=== PATIENT | female | born 1955 | race Caucasian/White ===

== ENCOUNTER 2017-07-01 08:23 | Emergency (ER) | payer MEDICARE ==
[2017-07-01 08:36] VITALS: BP 186/79; PULSE 60; RESP 18; TEMP 98.2
--- NOTE | 2017-07-01 09:04 | ED ---
ENT HPI - General Chief complaint: Dental/Oral Stated complaint: dental pain Time Seen by Provider: 07/01/17 08:40 Source: patient, RN notes reviewed, old records reviewed Mode of arrival: ambulatory Limitations: no limitations - History of Present Illness Initial comments: 61-year-old female presents emergency Department chief complaint of dental pain. She reports that she had x-rays completed and shows that she has infections over tooth #13 and 11. Patient states that she cannot get into the dentist until she has an appointment to have the tooth pulled. Patient relates that she noticed some swelling over her gums and feels like her face is swelling. Patient states she's had no fever or chills. Patient denies any chest pain shortness of breath, nausea vomiting, headaches, vision changes. - Related Data Home Medications Medication Instructions Recorded Confirmed Atorvastatin [Lipitor] 40 mg PO HS 02/01/16 02/01/16 B C Arthritis Rx With Aspirin & 1,000 mg PO DIRECTED PRN 02/01/16 Caffeine Dicyclomine [Bentyl] 10 mg PO BID 02/01/16 02/01/16 Ergocalciferol [Vitamin D2] 50,000 unit PO Q7D 02/01/16 02/01/16 Ferrous Gluconate 325 mg PO DAILY 02/01/16 02/01/16 Garcinia Weight Loss Rx 1 dose PO DAILY 02/01/16 Glimepiride [Amaryl] 4 mg PO BID 02/01/16 02/01/16 HYDROcodone/APAP 7.5-325MG [Hammond 1 tab PO DIRECTED PRN 02/01/16 02/01/16 7.5-325] Ibuprofen [Motrin] 800 mg PO DIRECTED PRN 02/01/16 02/01/16 LORazepam [Ativan] 1 mg PO BID 02/01/16 02/01/16 Levothyroxine Sodium [Synthroid] 50 mcg PO DAILY 02/01/16 02/05/16 Melatonin 5 mg PO HS PRN 02/01/16 02/05/16 Metoprolol Tartrate [Lopressor] 25 mg PO HS 02/01/16 02/01/16 Omeprazole [PriLOSEC] 20 mg PO BID 02/01/16 02/01/16 Oxybutynin Chloride [Ditropan] 5 mg PO DAILY 02/01/16 02/01/16 Ramipril [Altace] 5 mg PO HS 02/01/16 02/01/16 Sertraline [Zoloft] 100 mg PO BID 02/01/16 02/01/16 Ubidecarenone [Co Q-10] 200 mg PO DAILY 02/01/16 02/01/16 metFORMIN HCL 1,000 mg PO BID 02/01/16 02/01/16 Previous Rx's Medication Instructions Recorded Clindamycin [Cleocin] 450 mg PO TID 7 Days capsule 07/01/17 HYDROcodone/APAP 5-325MG [Hammond 1 tab PO Q6HR PRN #10 tab 07/01/17 5-325] Allergies Allergy/AdvReac Type Severity Reaction Status Date / Time Penicillins Allergy Severe Rash/Hives, Verified 07/01/17 08:36 Swelling, Itching Sulfa (Sulfonamide Allergy Swelling Verified 07/01/17 08:36 Antibiotics) codeine AdvReac Severe MIGRAINE Verified 07/01/17 08:36 peanut AdvReac Severe Migraine Verified 07/01/17 08:36 Metal Allergy Unknown Rash/Hives Uncoded 07/01/17 08:36 Review of Systems ROS Statement: Those systems with pertinent positive or pertinent negative responses have been documented in the HPI. ROS Other: All systems not noted in ROS Statement are negative. Past Medical History Past Medical History: Cancer, Diabetes Mellitus, GERD/Reflux, Hyperlipidemia, Hypertension, Myocardial Infarction ([place]), Thyroid Disorder Additional Past Medical History / Comment(s): MIGAINES, SLEEP APNEA (HAD SURG), STATES SPASTIC COLON, SKIN CANCER, STATES FERNY SHOULDER PAIN AND LEFT HEEL PAIN. , PT STATES SHE HAS A SORE THROAT AND SWELLING BY LEFT EAR-TO NOTIFY DR ALDRIDGE. Last Myocardial Infarction Date:: 2005 History of Any Multi-Drug Resistant Organisms: None Reported Past Surgical History: Adenoidectomy, Bladder Surgery, Heart Catheterization With Stent, Orthopedic Surgery, Tonsillectomy Additional Past Surgical History / Comment(s): RIGHT SHOULDER ROTATOR CUFF, LEFT HEEL SURGERY ("CAME OUT OF THE SOCKET"), SLEEP APNEA SURGERY INCLUDING SEPTAL SURGERY . Past Anesthesia/Blood Transfusion Reactions: No Reported Reaction, Motion Sickness Date of Last Stent Placement:: 2005 Past Psychological History: Anxiety, Depression, Panic Disorder Smoking Status: Former smoker Past Alcohol Use History: Rare Past Drug Use History: None Reported - Past Family History Mother Family Medical History: Cancer Additional Family Medical History / Comment(s): BREAST CANCER Father Family Medical History: Cancer Additional Family Medical History / Comment(s): SKIN CANCER Brother(s) Family Medical History: Cancer Additional Family Medical History / Comment(s): LUNG CANCER Sister(s) Family Medical History: Cancer Additional Family Medical History / Comment(s): BRAIN MASS, MELANOMA General Exam - General Exam Comments Initial Comments: This is a 61-year-old female. Alert and oriented. No distress. Limitations: no limitations General appearance: alert, in no apparent distress Head exam: Present: atraumatic, normocephalic, normal inspection Eye exam: Present: normal appearance, PERRL, EOMI. Absent: scleral icterus, conjunctival injection, periorbital swelling ENT exam: Present: normal exam, mucous membranes moist. Absent: normal oropharynx (Patient has evidence of poor dentition. She has fractured tooth # 13. Multiple dental caries.) Neck exam: Present: normal inspection. Absent: tenderness, meningismus, lymphadenopathy Respiratory exam: Present: normal lung sounds bilaterally. Absent: respiratory distress, wheezes, rales, rhonchi, stridor Cardiovascular Exam: Present: regular rate, normal rhythm, normal heart sounds. Absent: systolic murmur, diastolic murmur, rubs, gallop, clicks Course Vital Signs 07/01/17 08:33 Temperature 98.2 F Pulse Rate 60 Respiratory 18 Rate Blood Pressure 186/79 O2 Sat by Pulse 97 Oximetry Medical Decision Making - Medical Decision Making 61-year-old female presents with dental pain and swelling of her gums. She has fractured tooth #13 where the majority of the swelling is. I will start the patient on antibiotics. She is ALLERGIC to the son, we'll start the patient on clindamycin for dental infection. Thus following up with dental clinic. All questions answered return parameters were discussed. Disposition Clinical Impression: Pain, dental Disposition: HOME SELF-CARE Condition: Good Instructions: Dental Abscess (ED), Toothache (ED) Additional Instructions: Patient advised to follow-up with primary care provider and dental clinic. Take the medication as prescribed. Return to the emergency department if any alarming signs or symptoms occur. Prescriptions: Clindamycin [Cleocin] 450 mg PO TID 7 Days capsule HYDROcodone/APAP 5-325MG [Hammond 5-325] 1 tab PO Q6HR PRN #10 tab PRN Reason: Pain Referrals: Cate Peguero DO [Primary Care Provider] - 1-2 days Time of Disposition: 09:02
== END 2017-07-01 09:12 | disposition home or self-care (01) ==
LOC: EC 08:23
DX: K08.89 Other specified disorders of teeth and supporting structures (principal); K06.8 Other specified disorders of gingiva and edentulous alveolar ridge; E11.9 Type 2 diabetes mellitus without complications; K21.9 Gastro-esophageal reflux disease without esophagitis; E78.5 Hyperlipidemia, unspecified; I10 Essential (primary) hypertension; I25.2 Old myocardial infarction; E07.9 Disorder of thyroid, unspecified; G47.30 Sleep apnea, unspecified; F41.9 Anxiety disorder, unspecified; F32.9 Major depressive disorder, single episode, unspecified; Z85.828 Personal history of other malignant neoplasm of skin; Z95.5 Presence of coronary angioplasty implant and graft; Z87.891 Personal history of nicotine dependence; Z79.84 Long term (current) use of oral hypoglycemic drugs; Z79.899 Other long term (current) drug therapy; Z88.0 Allergy status to penicillin; Z88.2 Allergy status to sulfonamides; Z88.5 Allergy status to narcotic agent; Z91.010 Allergy to peanuts; Z91.048 Other nonmedicinal substance allergy status
CPT/HCPCS: 99283

== ENCOUNTER → 2018-05-05 | Outpatient (CLI) | payer MEDICARE ==
[2018-05-05 08:22] LABS: Blood Urea Nitrogen 20 mg/dL (7-17)
--- NOTE | 2018-05-05 10:03 | CT ---
EXAMINATION TYPE: CT angio neck DATE OF EXAM: 05/05/2018 COMPARISON: None HISTORY: 62-year-old female with neck vessels which enlarge periodically TECHNIQUE: Contiguous axial scanning of the neck performed with IV Contrast, patient injected with 65 mL of Isovue 370. Coronal/sagittal MIP reconstructions performed. 3-D reconstructions generated on a dedicated independent workstation. CT DLP: 338 mGycm Automated exposure control for dose reduction was used. FINDINGS: Minimal centrilobular emphysema in the visualized upper lungs. Mild atherosclerotic arch calcifications. Mild circumferential atherosclerotic plaque in the proximal brachiocephalic artery. Variant direct takeoff of the left vertebral artery directly from the aortic arch. The right vertebral artery origin is not well seen but appears grossly patent. Both vessels opacify b ut appear somewhat diminutive. The V4 segment of the right vertebral artery becomes hypoplastic after the PICA takeoff. Persistent origins of the bilateral substation operator transforming. The right common carotid artery is patent. Mild atherosclerotic calcifications in the right carotid bulb without significant stenosis of the rig ht ICA. Moderate irregular atherosclerotic plaque at the left bifurcation with moderate, just over 50% narrow ing of the proximal left carotid bulb. The remainder of the left ICA is patent. Left angle mandible is located 1.6 cm above the bifurcation. Some incidental intraluminal air within the left brachiocephalic artery likely from IV placement. IMPRESSION: 1. MODERATE ATHEROSCLEROTIC CHANGE AT THE LEFT BIFURCATION WITH MODERATE, JUST OVER 50% ATHEROSCLEROT IC NARROWING IN THE PROXIMAL LEFT CAROTID BULB. 2. VARIANT DIRECT TAKEOFF OF THE LEFT VERTEBRAL ARTERY DIRECTLY FROM THE AORTIC ARCH. BOTH VERTEBRAL ARTERIES ARE SOMEWHAT DIMINUTIVE AND THERE IS PERSISTENT ORIGIN OF THE BILATERAL AMMUNITION STOREKEEPER's. ALSO, T HE V4 SEGMENT OF THE RIGHT VERTEBRAL ARTERY BECOMES HYPOPLASTIC AFTER THE PICA TAKEOFF. FINDINGS ARE OF QUESTIONABLE CLINICAL SIGNIFICANCE BUT MAY BE SEEN IN THE SETTING OF VERTEBROBASILAR INSUFFICIENCY .
== END ==
LOC: RADCTMAIN 07:43
PROVIDERS: ATTEND Family Medicine
DX: I65.22 Occlusion and stenosis of left carotid artery (principal)
CPT/HCPCS: 82565; 84520; 70498; 36415; Q9967

== ENCOUNTER → 2018-07-09 | Outpatient (CLI) | payer MEDICARE ==
[2018-07-09 15:00] LABS: HCT 40.4 % (34.0-46.0); HGB 13.3 gm/dL (11.4-16.0); MCH 27.6 pg (25.0-35.0); MCHC 32.9 g/dL (31.0-37.0); Mean Platelet Volume 7.9; Platelet Count 294 k/uL (150-450); RBC 4.81 m/uL (3.80-5.40); RDW 15.2 % (11.5-15.5); WBC 8.6 k/uL (3.8-10.6)
[2018-07-09 15:01] LABS: Anion Gap 10 mmol/L; Blood Urea Nitrogen 13 mg/dL (7-17); Carbon Dioxide 23 mmol/L (22-30); Chloride 106 mmol/L (98-107); Potassium 4.7 mmol/L (3.5-5.1); Sodium 139 mmol/L (137-145)
== END ==
LOC: LABPAT 12:28
PROVIDERS: ATTEND Internal Medicine Interventional Cardiology
DX: Z01.812 Encounter for preprocedural laboratory examination (principal); I25.10 Atherosclerotic heart disease of native coronary artery without angina pectoris; R94.39 Abnormal result of other cardiovascular function study
CPT/HCPCS: 80051; 82565; 84520; 85027

== ENCOUNTER 2018-07-16 06:21 | Day surgery (SDC) | payer MEDICARE ==
[2018-07-16] MEDS ORDERED: SODIUM CHLORIDE 0.9% 1,000 ML in EMPTY BAG 1 BAG IV ONE (06:26)
[2018-07-16] MEDS ORDERED: ATORVASTATIN 80 MG TAB PO STA (06:26)
[2018-07-16] MEDS ORDERED: ALPRAZolam 0.5 MG TAB PO PRN (06:26)
[2018-07-16] MEDS ORDERED: ASPIRIN 325 MG TAB PO STA (06:26)
[2018-07-16] MEDS ORDERED: NITROGLYCERIN SL TABS 0.4 MG TAB SUBLINGUAL PRN ×2 (06:26→08:57)
[2018-07-16] MEDS ORDERED: ALPRAZolam 0.25 MG TAB PO PRN (06:26)
[2018-07-16] MEDS ORDERED: INSULIN ASPART (NovoLOG) 100 UNIT/ML VIAL SQ ONE (07:02)
[2018-07-16 07:05] LABS: Glucose,Whole Blood 239 mg/dL (75-99)
[2018-07-16] MEDS ORDERED: VERAPAMIL 2.5 MG/ML 2 ML AMP ONE (07:14)
[2018-07-16] MEDS ORDERED: fentaNYL (PF) 50 MCG/ML 2 ML AMP ONE (07:14)
[2018-07-16] MEDS ORDERED: LIDOCAINE 1% INJ 10MG/ML (20 ML MDV) ONE (07:14)
[2018-07-16] MEDS ORDERED: fentaNYL (PF) 50 MCG/ML 2 ML AMP IV ONE (07:40)
[2018-07-16] MEDS ORDERED: LIDOCAINE 1% INJ 10MG/ML (20 ML MDV) SQ ONE (07:42)
[2018-07-16] MEDS ORDERED: VERAPAMIL SYRINGE (5 MG/10 ML) INTRAARTER ONE (07:45)
[2018-07-16] MEDS ORDERED: MIDAZOLAM (PF) 2 MG/2 ML VIAL IV ONE (07:47)
[2018-07-16] MEDS ORDERED: CLOPIDOGREL 75 MG TAB ONE (07:53)
[2018-07-16] MEDS ORDERED: BIVALIRUDIN BOLUS 250 MG/50 ML IV ONE (07:54)
[2018-07-16] MEDS ORDERED: CLOPIDOGREL 75 MG TAB PO ONE (07:56)
[2018-07-16] MEDS ORDERED: BIVALIRUDIN 250 MG in SODIUM CHLORIDE 0.9% 50 ML IV ONE (07:57)
[2018-07-16] MEDS ORDERED: IOPAMIDOL-370 100ML BTL INJ ONE (08:00)
[2018-07-16] MEDS: NITROGLYCERIN 1000MCG/10ML SYRINGE INTRACORON ONE ×2 (08:03→08:28)
[2018-07-16] MEDS ORDERED: HYDROmorphone 1 MG/ML 1 ML SYRINGE ONE (08:12)
[2018-07-16] MEDS ORDERED: HYDROmorphone 1 MG/ML 1 ML SYRINGE IVP ONE ×2 (08:15)
[2018-07-16] MEDS ORDERED: IOPAMIDOL-250 100ML BTL INTRAARTER ONE ×2 (08:24→08:39)
[2018-07-16] MEDS ORDERED: ATROPINE SULFATE 0.1 MG/ML 10ML SYRINGE IV PRN (08:57)
[2018-07-16] MEDS ORDERED: ZOLPIDEM 5 MG TAB PO PRN (08:57)
[2018-07-16] MEDS ORDERED: MAG HYDROX/AL HYDROX/SIMETH 30 ML CUP PO PRN (08:57)
[2018-07-16] MEDS ORDERED: RX INFO: IV CONTRAST WAS GIVEN 1 EACH MISC MISCELLANE PRN (08:57)
[2018-07-16] MEDS ORDERED: LORazepam 1 MG TAB PO PRN (08:58)
[2018-07-16] MEDS ORDERED: SODIUM CHLORIDE 0.9% 1,000 ML IV SCH (09:00)
--- NOTE | 2018-07-16 09:20 | PTCA ---
PERCUTANEOUSTRANS CORORONARY ANGIOGRAPHY Ms. Pugh is a 62-year-old female with known history of hypertension, hyperlipidemia, diabetes mellitus, history of coronary artery disease who has underwent cardiac catheterization, was found to have significant stenosis involving the LAD and the left circumflex in addition to the obtuse marginal branch. In view of that, recommendation regarding angioplasty and stenting. The procedures, risks and complication were discussed with the patient who is in full understanding and agreement. PROCEDURE: A 6-Estonian FL 3.5 guiding catheter was introduced into the system. After cannulating the left main, a 0.014 balanced medium weight J-wire was advanced and positioned in the first obtuse marginal branch. Following that, a 2nd her 0.014 balanced medium weight J- wire was advanced and positioned distal LAD. Following that, a 2.25 x 12 mm Trek balloon was advanced and inflation in the mid LAD was performed at maximum of 8 atmospheres. Following that, the balloon was removed and a 2.5 x 18 mm Xience Ale stent was deployed, postdilated at 16 atmospheres. After the last inflation, after appropriate wait, the balloon was withdrawn back in the guiding catheter. Subsequently, the 2.25 x 12 mm Trek balloon was advanced over the obtuse marginal branch wire and one inflation was done at 8 atmospheres. Following that, the balloon was removed and a 2.25 x 15 mm Xience Ale stent was deployed, postdilated at 16 atmospheres. Following that, the balloon and the wire were removed and a 0.014 balanced medium weight J-wire was advanced in the AV groove left circumflex and positioned distally. Following that, a 2.25 x 12 mm Trek balloon was advanced and one inflation at 8 atmospheres was done. Following that, the balloon was removed and a 2.5 x 18 mm Xience Ale stent was deployed and post-dilated at 12 atmospheres. After the last inflation, after appropriate wait, the balloon and the guidewire were withdrawn back in the guiding catheter. Images were obtained and repeated. Those images reveal stable successful stenting. At that point, the guiding catheter, the balloon and the guidewire were removed. The left ventriculogram was performed. Following that, catheter and sheaths were removed. Hemostasis was obtained with deployment of a TR band. There was no immediate complication. Patient is returned to her room in stable condition. Of note, patient received Angiomax per protocol and an oral loading dose of clopidogrel. She had chest discomfort and EKG changes with the inflation that resolved at the end of the procedure. RESULTS: 1. Successful stenting of the mid left anterior descending artery with reduction of stenosis from 99% to 0%. 2. Successful stenting of the first obtuse marginal branch with reduction of stenosis from 80% to 0%. 3. Successful stenting of the mid left circumflex with reduction of stenosis from 95% to 0%. RECOMMENDATION: Patient will be continued on aspirin, Plavix, beta blockers and statin the importance of dual antiplatelet treatment were discussed with the patient her family who are in full understanding and agreement. Duration of procedure is 61 minutes. MMODL / IJN: [id number] /
--- NOTE | 2018-07-16 09:20 | CC ---
CARDIAC CATHETERIZATION REPORT Ms. Pugh is 62-year-old female who is followed by Dr. Mauro, has a history of coronary artery disease, status post stenting of the mid LAD in 2006 in the setting of myocardial infarction, who presented to Dr. Mauro with symptoms of chest discomfort and had an abnormal myocardial perfusion imaging. In view of that, recommendation was made regarding cardiac catheterization. The procedure as well as the risks and the complications were discussed with the patient who is in full understanding and agreement. PROCEDURE: Patient was brought to receiver/laborer in a fasting semi-sedated state after receiving fentanyl and Benadryl and achieving moderate conscious sedated state. Using Xylocaine anesthesia in the Seldinger technique, 6-Moroccan sheath was introduced in the right radial artery. Selective right and left coronary angiography performed using 5- Moroccan 3.5 bend, right and left Debby catheter. Multiple views of the coronary artery including hemiaxial views obtained. Following that, angioplasty and stenting was performed. Following that, a 5-Moroccan tight pigtail catheter was introduced in the left ventricle and a 30-degree BERG view of the left ventricle was obtained. Following that, catheter and sheaths were removed. Hemostasis was obtained with deployment of a TR band. There was no immediate complication. Patient was returned to her room in stable condition. Of note, the patient received intra-arterial verapamil. FINDINGS: LEFT MAIN: This is a large-sized vessel bifurcating left circumflex, left anterior descending artery. Left main coronary artery has no evidence of coronary artery disease. LEFT ANTERIOR DESCENDING ARTERY: This is a large-sized vessel reaching toward the apex with a wraparound apex segment giving rise to a moderately sized diagonal branch in the mid segment. The left anterior descending artery in the proximal segment had 30% diffuse intimal disease. The stented segment has a 99% stenosis beyond that the vessel has no high-grade stenosis. LEFT CIRCUMFLEX: This is a nondominant vessel, large in caliber giving rise to a large first obtuse marginal branch that has a 90% stenosis in the mid segment. The rest of the vessel has mild intimal disease. The AV groove left circumflex following the takeoff of the first obtuse marginal branch has a long tubular lesion of 90% to 95% beyond that it gives rise to a smaller diagonal branch. RIGHT CORONARY ARTERY: This is a dominant vessel large in caliber bifurcating into PDA and posterolateral segment branches. The right coronary artery has mild intimal diffuse disease of 20% to 30% without any evidence of high-grade stenosis. LEFT VENTRICULOGRAM: Left ventriculogram was performed in 30-degree BERG view and revealed minimal anteroapical hypokinesis. Ejection fraction 50%. There was no significant mitral regurgitation. HEMODYNAMICS: There was no gradient across the aortic valve. The left ventricular end- diastolic pressure was 12 to 16 mmHg. CONCLUSION: 1. Significant stenosis in the mid LAD. 2. Significant disease in the first obtuse marginal branch and the AV groove left circumflex. 3. Mild disease in the right coronary artery. 4. Mildly impaired left ventricular systolic function. RECOMMENDATION: In view of finding anatomy, I recommend proceeding with angioplasty and stenting of the LAD and left circumflex. The procedures as well as the risks and the complications were discussed with the patient who is in full understanding and agreement. GRACE / ARASELI: [id number] / JADE
[2018-07-16 13:39] VITALS: BMI 29.5
[2018-07-16] MEDS: DICYCLOMINE 10 MG CAP PO SCH ×2 (16:50→21:07)
[2018-07-16 16:57] LABS: Glucose,Whole Blood 153 mg/dL (75-99)
[2018-07-16] MEDS ORDERED: LISINOPRIL 20 MG TAB PO SCH (21:00)
[2018-07-16] MEDS ORDERED: METOPROLOL TARTRATE 25 MG TAB PO SCH (21:00)
[2018-07-16] MEDS ORDERED: ATORVASTATIN 40 MG TAB PO SCH (21:00)
[2018-07-16 21:04] LABS: Glucose,Whole Blood 202 mg/dL (75-99)
[2018-07-17 06:13] LABS: Glucose,Whole Blood 202 mg/dL (75-99)
[2018-07-17] MEDS ORDERED: LEVOTHYROXINE 50 MCG TAB PO SCH (06:30)
[2018-07-17 06:45] LABS: Anion Gap 7 mmol/L; Blood Urea Nitrogen 14 mg/dL (7-17); Calcium 9.6 mg/dL (8.4-10.2); Carbon Dioxide 26 mmol/L (22-30); Chloride 104 mmol/L (98-107); Glucose 208 mg/dL (74-99); Potassium 4.6 mmol/L (3.5-5.1); Sodium 137 mmol/L (137-145)
[2018-07-17] MEDS ORDERED: PANTOPRAZOLE 40 MG TABLET PO SCH (07:30)
[2018-07-17] MEDS ORDERED: SERTRALINE 50 MG TAB PO SCH (09:00)
[2018-07-17] MEDS ORDERED: ASPIRIN 81 MG PO SCH (09:00)
[2018-07-17] MEDS ORDERED: CLOPIDOGREL 75 MG TAB PO SCH (09:00)
[2018-07-17] MEDS: DICYCLOMINE 10 MG CAP PO SCH (09:34)
[2018-07-17 09:54] VITALS: RESP 18
--- NOTE | 2018-07-17 11:42 | P.PN ---
Subjective Progress Note Date: 07/17/18 discharge note This is a 62-year-old female who follows with Dr. Mauro in the office she has a history of coronary artery disease with prior LAD stenting in 2005 in the setting of an PR. She was brought to the hospital by Dr. Harrison yesterday to undergo cardiac catheterization subsequently patient also underwent angioplasty and stenting of the LAD OM and circumflex. She was seen and examined this mo rning, overall doing well. Denies any chest pain in her breathing is been stable.EKG from this morning shows a normal sinus rhythm with no changes from post PCI. Blood pressure 110/60 with a heart rate in the 70s, 98% on room air. Sodium 137, potassium 4.6, BUN 14 and creatinine 0.4. Objective - Vital Signs Vital signs: Vital Signs Temp 98.0 F 07/17/18 08:00 Pulse 73 07/17/18 08:00 Resp 18 07/17/18 08:00 BP 111/61 07/17/18 08:00 Pulse Ox 98 07/17/18 08:00 Intake & Output 07/16/18 07/17/18 07/17/18 18:59 06:59 18:59 Intake Total 586 360 Balance 586 360 Weight 81.647 kg 82.5 kg Intake: IV 364 Oral 222 360 Other: # Voids 0 2 # Bowel Movements 0 0 - Exam PHYSICAL EXAMINATION: GENERAL:62-year-old female in no acute distress at the time of my examination HEENT: Head is atraumatic, normocephalic. Pupils equal, round. Sclera anicteric. Conjunctiva are clear. Mucous membranes of the mouth are moist. Neck is supple. There is no elevated jugular venous pressure.no carotid bruit is heard. HEART EXAMINATION: [Heart S1, S2 normal. No murmur or gallop heard.] CHEST EXAMINATION:[ Lungs are clear to auscultation and precussion. No chest wall tenderness is noted on palpation or with deep breathing.] ABDOMEN: [ Soft, nontender. Bowel sounds are heard. No organomegaly noted]. EXTREMITIES:[ 2+ peripheral pulses with no evidence of peripheral edema and no calf tenderness noted]. right radial site clean and dry, good distal pulse. NEUROLOGIC [patient is awake, alert and oriented ?-3.] . - Labs CBC & Chem 7: 07/17/18 06:12 Labs: Abnormal Lab Results - Last 24 Hours (Table) 07/16/18 07/16/18 07/17/18 Range/Units 16:55 21:01 06:11 Creatinine (0.52-1.04) mg/dL Glucose (74-99) mg/dL POC Glucose (mg/dL) 153 H 202 H 202 H (75-99) mg/dL 07/17/18 Range/Units 06:12 Creatinine 0.49 L (0.52-1.04) mg/dL Glucose 208 H (74-99) mg/dL POC Glucose (mg/dL) (75-99) mg/dL Assessment and Plan Plan: assessment and plan #1 status post angioplasty and stenting of the LAD, OM and circumflex artery #2 known history of coronary artery disease with prior LAD stenting #3 hypertension #4 hyperlipidemia #5 diabetes Plan Patient may be be discharged home today. She will have a follow-up appointment in the office with Dr. Mauro in one week. Patient will be discharged home on aspirin 81 mg daily, Lipitor 40 mg daily, Plavix 75 mg daily, Synthroid, Zestril 20 mg daily, metoprolol 25 mg one tablet daily,sublingual nitroglycerin as needed for chest pain. DNP note has been reviewed, I agree with a documented findings and plan of care. Patient was seen and examined.
[2018-07-17 11:49] VITALS: BP 106/60; PULSE 56; TEMP 96.7
[2018-07-17 12:17] LABS: Glucose,Whole Blood 170 mg/dL (75-99)
[2018-07-18] MEDS ORDERED: Semaglutide [Ozempic] 0.25 MG SQ SCH (09:00)
[2018-07-18] MEDS ORDERED: ERGOCALCIFEROL 50,000 UNIT CAP PO SCH (09:00)
== END 2018-07-17 13:25 | disposition home or self-care (01) ==
LOC: CATHCVL 06:21 → 3SCARD 08:41 → CATHCVL 07-17 13:25
PROVIDERS: ATTEND Internal Medicine Interventional Cardiology
DX: I25.10 Atherosclerotic heart disease of native coronary artery without angina pectoris (principal); T82.855A Stenosis of coronary artery stent, initial encounter; I25.2 Old myocardial infarction; I10 Essential (primary) hypertension; E78.5 Hyperlipidemia, unspecified; E78.00 Pure hypercholesterolemia, unspecified; E11.9 Type 2 diabetes mellitus without complications; Z95.5 Presence of coronary angioplasty implant and graft; I65.29 Occlusion and stenosis of unspecified carotid artery; Z87.891 Personal history of nicotine dependence; Z82.49 Family history of ischemic heart disease and other diseases of the circulatory system; Z88.5 Allergy status to narcotic agent; Z88.0 Allergy status to penicillin
CPT/HCPCS: 93458; 85347; 80048; C9600 ×2; C9601; C1769 ×2; C1887; C1894; C1725; C1874; J2001; J3010; J1170; J0583; Q9966; Q9967; J2250

== ENCOUNTER → 2021-01-09 | Outpatient (CLI) | payer MEDICARE ==
[2021-01-09 09:15] LABS: African American GFR (CKD) >90 (>60 ml/min/1.73 sqM); Blood Urea Nitrogen 17 mg/dL (7-17); Non-African American GFR(CKD) >90 (>60 ml/min/1.73 sqM)
--- NOTE | 2021-01-09 10:43 | CT ---
EXAMINATION TYPE: CT angio neck DATE OF EXAM: 01/09/2021 HISTORY: carotid stenosis, abn US COMPARISON: 05/05/2018 CT DLP: 397 mGycm. Automated Exposure Control for Dose Reduction was Utilized. TECHNIQUE: CTA scan of the neck is performed with IV Contrast, patient injected with 65 mL of Isovue 370, axial images are obtained, coronal and sagittal reformatted images are reviewed. 3D reconstruct ed images are created on an independent workstation and reviewed. FINDINGS: Minimal centrilobular emphysema in the visualized upper lungs. Mild atherosclerotic arch calcifications. Mild circumferential atherosclerotic plaque in the proximal brachiocephalic artery. Variant direct takeoff of the left vertebral artery directly from the aortic arch. The right vertebral artery origin is not well seen but appears grossly patent. Both vessels opacify b ut appear somewhat diminutive. The V4 segment of the right vertebral artery becomes hypoplastic after the PICA takeoff. Persistent origins of the bilateral cattle killer. The right common carotid artery is patent. Mild atherosclerotic calcifications in the right carotid b ulb without significant stenosis of the right ICA. Moderate irregular atherosclerotic plaque at the left bifurcation with moderate, 50% narrowing of the proximal left carotid bulb. Within the proximal left common carotid artery there is an approximate 4 0% stenosis of the common carotid artery. There also appears to be an eccentric 30% stenosis near the origin of the left common carotid artery. Subclavian arteries are patent bilaterally as visualized.. Some incidental intraluminal air within the left brachiocephalic artery likely from IV placement. IMPRESSION: 1. MODERATE ATHEROSCLEROTIC CHANGE AT THE LEFT BIFURCATION STABLE, MEASURING 50% ATHEROSCLEROTIC NARR OWING IN THE PROXIMAL LEFT CAROTID BULB. 2. VARIANT DIRECT TAKEOFF OF THE LEFT VERTEBRAL ARTERY DIRECTLY FROM THE AORTIC ARCH. BOTH VERTEBRAL ARTERIES ARE SOMEWHAT DIMINUTIVE AND THERE IS PERSISTENT ORIGIN OF THE BILATERAL SODDER's. ALSO, T HE V4 SEGMENT OF THE RIGHT VERTEBRAL ARTERY BECOMES HYPOPLASTIC AFTER THE PICA TAKEOFF. FINDINGS ARE OF QUESTIONABLE CLINICAL SIGNIFICANCE BUT MAY BE SEEN IN THE SETTING OF VERTEBROBASILAR INSUFFICIENCY 3. There is approximately 40% stenosis of the proximal left common carotid artery. NASCET criteria was used in interpretation of this exam?
== END | disposition home or self-care (01) ==
LOC: RADCTMAIN 08:24
PROVIDERS: ATTEND Internal Medicine Clinical Cardiac Electrophysiology
DX: I65.22 Occlusion and stenosis of left carotid artery (principal)
CPT/HCPCS: 82565; 84520; 70498; 36415; Q9967

== ENCOUNTER → 2024-01-13 | Outpatient (CLI) | payer MEDICARE ==
--- NOTE | 2024-01-19 12:38 | MM ---
Reason for Exam: Additional evaluation requested from abnormal screening. Last mammogram was performed 24 year(s) and 10 month(s) ago. Patient History: Menarche at age 16. First Full-Term at age 18. Postmenopausal. Mother had breast cancer, age 70. Risk Values: Rose 5 year model risk: 2.9%. NCI Lifetime model risk: 9.3%. Prior Study Comparison: 07/25/1997 Screening Mammogram, Unknown. 03/20/1999 Bilateral Screening Mammogram, [facility]. Tissue Density: There are scattered areas of fibroglandular density. Findings: Analyzed By CAD. No discrete persistent nodule or mass within either breast. Precautionary six-month follow-up recommended. Overall Assessment: Probably benign, BI-RAD 3 Management: Diagnostic Mammogram of both breasts in 6 months. . Results were given to the patient verbally at the time of exam. Patient should continue monthly self-breast exams. A clinical breast exam by your physician is recommended on an annual basis. This exam should not preclude additional follow-up of suspicious palpable abnormalities. Note on Rose scores and lifetime risk: 1. A Rose score greater than 3% is considered moderate risk. If this is the case, consider specialist referral to assess eligibility for a risk reducing agent. 2. If overall lifetime risk for the development of breast cancer is 20% or higher, the patient may qualify for future screening with alternating mammogram and breast MRI. [facility], , 01/13/2024 8:54 AM. Electronically signed and approved by: Toby Young M.D. Radiologis
== END | disposition home or self-care (01) ==
LOC: RADMAMWWP 07:43
PROVIDERS: ATTEND Family Medicine
CPT/HCPCS: 77062; 77066